=== PATIENT | female | born 1975 | race Caucasian/White ===

== ENCOUNTER 2016-10-05 02:27 | Inpatient (IN) | payer OTHER ==
[~2016-10-05] VITALS: Ht 162.6 cm; Wt 91.2 kg
[~2016-10-05 02:27] MED LIST: ATORVASTATIN CA10 M1 PO; CHANTIX0.5 M1 PO; EPIPEN 2-PAK1 MG/ML IM; GEMFIBROZIL600 M1 PO; LISINOPRIL20 M1 PO; METFORMIN HCL1000 M1 PO; PREDNISONE20 MG PO
--- NOTE | 2016-10-05 11:35 | Operative Report ---
Operative/Inv Procedure Report Surgery Date: 10/05/16 Name of Procedure: L4 5 transforaminal lumbar interbody fusion, L4 5 posterior lateral nonsegmental instrumentation using Medtronics Solera pedicle screws, bone marrow aspirate from right iliac crest, autograft, allograft, Stealth navigation, placement of fuse intervertebral biomechanical device, a right-side trandfacet transforaminal decompression, L4 laminectomy Pre-Operative Diagnosis: L4 5 spondylolisthesis Post-Operative Diagnosis: Same Estimated Blood Loss: 250 Surgeon/Gyroscopic Engineering Technician: christal swann MD,JUAN Reyes Anesthesia: general endotracheal tube Operative/Procedure Note Note: After the successful administration of general endotracheal anesthesia all lines tubes and monitors were placed by anesthesia team the patient was positioned prone on the Gabriel table with all pressure points padded. Under sterile technique a spinal needle was placed in the spinous process of L5 to confirm level. We then marked the patient was prepped and draped in usual standard fashion, a #10 blade was used to incise the skin of 10 mL of lidocaine with epinephrine was infiltrated in subcutaneous tissues. Dissection was taken down with Bovie cautery to thoracolumbar fascia and a subperiosteal dissection was carried out exposing spinous process and lamina of L4 and L5, after levels confirmed we denuded denuded L4 5 joint, the L3 4 joint was preserved. We identified the transverse processes bilaterally and decorticated them with a high-speed drill. We then used the bone scalpel to make a cut in the pars intra -articularis of L4 and the lamina of L4 removing the descending facet of L4. The central spinous process and lamina of L4 was resected with a Leksell and the bone scalpel, exposing the thecal sac. We identified the exiting L4 nerve root and traversing L5 nerve root generous foraminotomy was performed using Kerrison punch skeletonizing the L5 pedicle. We used the bone scalpel to make a cut in the superior facet of L5, providing wide axis the disc space. Retracted the neural elements medially with a Jose Angel nerve retractor into the disc space and with a comminution of kwadwo joshua rasps curettes perform a total discectomy at L4 5. We then trialed a 12 mm spacer, the space was prepacked with morselized autograft soaked in bone marrow aspirate taken from the right iliac crest. A 12 x 24 x 4 lordotic views cage was placed and the 4/5 disc space. We then placed the spinous process clamp on the spinous process of L5 and brought the O arm in for a spin. On the [employer] workstation we planned our screw entry points and trajectories. We used the navigated mitis to drill co pilot holes at the junction of pars reticularis transverse process facet complex at L4 and L5. We then used a similar ATS screw a 6 5 x 40 on the left at L4 and 5-6 5 x 45 at L4 to 6 5 x 40 at L5 on the right. All screws stimulated above threshold. We brought the O arm in for confirmatory spin all hardware in excellent position the L5 screws were backed out 1 full turn bilaterally. We then placed precontoured 35mm rods secured in place with a torque limiting wheat combine driver and provide gentle compression across the disc space. The lateral gutters were packed with morselized autograft and Maginafuse sponges. We then copiously irrigated the wound with bacitracin irrigation obtained meticulous hemostasis and bleeding bone edges are muscle we then closed wound over a BRANNON drain . We used 0 Vicryls for the fascia 2-0 Vicryl for the deep dermis and skin was closed with jean. A dry sterile dressing was applied, at end the case all needle counts sponges and instrument correct the patient was taken to recovery room in stable condition.
--- NOTE | 2016-10-05 11:45 | Operative Report ---
Operative/Inv Procedure Report Surgery Date: 10/05/16 Name of Procedure: 1. Right L4 pars osteotomy 2. Right L4 5 total facetectomy 3. Right L4 5 far lateral discectomy 4. L4 5 transforaminal lumbar interbody fusion with Medtronic fuse titanium interbody cage, autograft, iliac crest bone marrow aspirate 5. L4 5 posterior lateral arthrodesis with Medtronic Solera pedicle screws and rods, autograft, magna fuse, iliac crest bone marrow aspirate 6. O arm neuro navigation 7. Right iliac crest bone marrow aspirate Pre-Operative Diagnosis: L4 5 spondylolisthesis, high-grade right L4 5 foraminal stenosis, intractable right L4 radiculopathy Post-Operative Diagnosis: Same Estimated Blood Loss: 250cc Surgeon/Sign Letterer: ASHLEY BYRD,Darren Gonzalez M.D. Anesthesia: general endotracheal tube Monitors: Neurophysiologic monitoring IV Fluids: 1.6 L crystalloid Implants: Medtronic infused interbody cage, Solera ATS pedicle screws and rods Urine Output: 525 mL via Browning Drains: Medium BRANNON Specimens: L4 5 disc material Complications: None Condition: Stable Operative Indication: Patient is a 41-year-old woman with intractable right L4 lumbar radiculopathy. Symptoms are ongoing despite comprehensive conservative treatment. CT and MRI imaging identifies a grade 1 L4 5 degenerative spondylolisthesis with right lateral and foraminal disc herniation. This in conjunction with significant facet hypertrophy results in a high-grade right foraminal stenosis and impingement of the right L4 root. She now presents for operative decompression and instrument stabilization. Operative/Procedure Note Note: Patient was taken the operating room. After appropriate patient identification, neurophysiologic monitoring leads were placed and baseline recordings were obtained. The patient then underwent the smooth induction of general endotracheal anesthesia without incident. Following intubation monitoring was stable. A Browning catheter was sterilely inserted. DVT prophylaxis was utilized throughout the case. Patient was given 1 g IV vancomycin in Preoperative Prophylaxis. With all tubes and lines secured, the patient was then carefully turned to the prone position on the Gabriel frame taking care to ensure that all pressure points were well-padded. The lumbar region was widely prepped and draped usual sterile fashion using Hibiclens solution. A midline skin incision was marked and infiltrated with local anesthetic. A small gauge spinal needle was placed superficially and a localizing x-ray obtained and confirmed this to be the level of L5. Skin incision was made with a 10 blade knife. Dissection was carried down through subcutaneous tissue with the Bovie to the lumbodorsal fascia. The fascia was incised in midline and a subperiosteal dissection of the lumbar paraspinal muscles was performed bilaterally exposing underlying lamina and facet joints of L4 and L5. The facets of L4 5 were noted to be markedly hypertrophic. A Perry elevator was placed at the right L4 pars interarticularis and intraoperative lateral lumbar x-rays obtained and confirmed this to be the correct level of L4 5. With the correct level verified, we then proceeded to expose the transverse processes of L4 and L5 bilaterally in the were decorticated with a high-speed drill. We first focused our attention to the decompression. A complete facetectomy and L4 pars osteotomy was performed using the Aesculap bone scalpel and completed with Kerrison rongeurs on the symptomatic right side. Ligamentum flavum was gently elevated off the dura with angled curettes and removed piecemeal with Kerrison rongeurs exposing the exiting L4 and traversing L5 roots. Working from the patient's more symptomatically right side, the dural sac was gently mobilized to the midline and the underlying disc annulus identified. A cuff of overlying venous epidural tissue was coagulated and divided. The annulus itself was incised with a 11 blade knife and a rectangular fashion and discectomy was performed performed with the straight and angled curettes disc space kwadwo and rasps. The discectomy was completed until all cartilaginous endplate was removed. The disc space was irrigated. Stab incision was made overlying the posterior right iliac crest and 10 mL of right posterior iliac crest bone marrow aspirate was then obtained using a [employer] marrow aspirate kit. After apropriate trials, a 12 x 24 x 4 lordotic titanium Medtronic cage was selected. This was filled with morcellated autograft from the decompression. Morcellated autograft with iliac crest bone marrow aspirate was packed into the anterior L4 5 disc space. The cage was then gently tamped into the L4 5 interspace under direct visualization and countersunk by several millimeters with the trajectory of the cage towards the midline. Once the cage was in position, The O arm reference arc was then fixed to the residual L5 spinous process. AP and lateral senior etl developer films followed by a spin of the O arm were obtained. We verified the reconstructions and then proceeded with the posterior lateral arthrodesis. The remaining morcellated autograft was packed of the transverse processes bilaterally and covered with diffuse bilaterally. Using the O arm navigated Solera ATS system, we planned entry points for pedicle screws at L4 and L5 bilaterally at the junction of the pars interarticularis transverse process and inferomedial aspect of the rostral facet. Entry points were marked with the drill. Navigated Solera ATS screws were then placed bilaterally at L4 and L5 and stimulated with thresholds greater than 40 mA at all 4 locations. 6.5 x 45 mm placed at right L4, 6.5 x 40 mm at left L4, 6.5 x 40 mm screws placed bilaterally at L5. The O arm was then brought back into play and a second spin obtained and confirmed position of all of the instrumentation. 35 mm rods were then top loaded into the screws and locking caps placed. Gentle compression was placed across the interspace and the Screws were finally tightened with an antitorque device. The was copiously irrigated. A medium BRANNON drain was placed into the wound and secured to the skin with a 2-0 nylon suture. 1 g of IV vancomycin powder was used to coat the cut muscle and soft tissue surfaces and we then began wound closure. 10 mL of long-acting Marcaine was infiltrated into the paravertebral muscle bilaterally. Deep muscle was reapproximated interrupted 0 Vicryl suture. The lumbodorsal fascia was reapproximated interrupted 0 Vicryl suture. Subcutaneous tissue is closed in layers with interrupted 2-0 Vicryl suture and the skin was closed with jean. The stab incision at the right hip was closed with a single staple. Wounds were cleaned and dried. Bacitracin and a sterile occlusive dressings were placed. Patient was then returned to the supine position awakened X pain taken to PACU in stable condition. She was noted to be moving all 4 extremities at the completion the case. All sponge nail edge encounter correct the completion of the procedure 3. Neurophysiologic monitoring was stable throughout the case. Discharge Disposition: PACU
--- NOTE | 2016-10-05 13:00 | RADIOLOGY REPORT ---
EXAMINATION: XR LUMBAR SPINE CLINICAL INFORMATION: L4-L5 stabilization in OR. COMPARISON: X-rays obtained earlier 10/05/2016, intraoperative. TECHNIQUE: A single lateral view of the lumbar spine was obtained. Intraoperative CT scans were also obtained intraoperatively. FINDINGS: The lateral view demonstrates bilateral pedicular screws in L4 and L5 and the intervertebral disc device at L4-L5. There is a metallic plan around the spinous process of L5. There has been a posterior decompression at L4-L5. There is bone graft material bilaterally at L4-L5 around the facets. IMPRESSION: The study demonstrates placement of bilateral pedicular screws in L4 and L5, and there is an intervertebral disc device at L4-L5.
--- NOTE | 2016-10-05 13:01 | RADIOLOGY REPORT ---
EXAMINATION: XR LUMBAR SPINE CLINICAL INFORMATION: L4-L5 localization, pre stabilization. Image 2. COMPARISON: Intraoperative image obtained earlier 10/05/2016. TECHNIQUE: A single lateral view of the lumbar spine was obtained intraoperatively. FINDINGS: The lateral view demonstrates narrowing of intervertebral disc height at L4-L5 and L5-S1. There are facet arthropathic changes at these levels. There is a linear metallic instrument with the tip over the region of the posterior pedicle of L4. Material from swabs is noted, and there is a retractor posterior to the spinal column. IMPRESSION: 1. The single image demonstrates degenerative changes in the lower lumbar spine. 2. There are instruments at the level of L4.
--- NOTE | 2016-10-05 13:01 | RADIOLOGY REPORT ---
EXAMINATION: XR LUMBAR SPINE CLINICAL INFORMATION: L4-L5 localization. Increased embolization. Image 1. COMPARISON: CT lumbar spine 09/16/2016. TECHNIQUE: A single lateral view of the lumbar spine was obtained. There are degenerative changes at L4-L5 and L5-S1 with facet arthropathy narrowing of intervertebral disc height. FINDINGS: There are degenerative changes at L4-L5 and L5-S1. There is a needle tip posterior to the L5 spinous process. IMPRESSION: 1. The single image demonstrates degenerative changes in the lower lumbar spine. 2. There is a needle, with tip posterior to the spinous process of L5.
[2016-10-05 13:55] VITALS: BP 140/72
--- NOTE | 2016-10-05 14:00 | NUR ---
ADMISSION NOTE: PT ARRIVED TO ROOM IN STRETCHER WITH DISTRIBUTION A/OX3, ROOM AIR, 2 IVSIN TACT, IVF RUNNING, DSG TO LUMBAR BACK SHADOWING AND SPOTTING BLOOD, SCANT AMOUNT, BRANNON DRAIN TO BACK DRAINING BLOOD, ÁLVAREZ IN PLACE, REPORTING PAIN OF 5/10, REPORTS SENSATION TO LEGS AND ABSENCE OF PAIN TO LEGS, +PP, +CMS, VSS, RESTING COMFORTABLY IN BED, ORIENTED TO ROOM, WILL CONTINUE TO MONITOR.
--- NOTE | 2016-10-05 14:46 | PN- Neurosurgical ---
Subjective Subjective: POST-OP NOTE: Her pre-operative right leg pain and paresthesias are completely unappreciable now. She reports expected incisional discomfort. Tolerating clears so far. No nausea. Not yet out of bed. No dizziness. No shortness of breath. No chest pains. She is happy to no longer feel leg pain. Objective Vital Signs and I&Os Vital Signs Date Time Temp Pulse Resp B/P B/P Pulse O2 O2 Flow FiO2 Mean Ox Delivery Rate 10/05 1355 97.7 99 18 140/72 96 Room Air Physical Exam: General - alert & oriented x 3. comfortable. no acute distress. Lungs - clear bilaterally. no w/r/r. Cardiac - s1s2. reg. Abdomen - soft. nontender. Lumbar - dressing stained but intact. BRANNON drain with scant bloody drainage. - baron draining clear, yellow urine. Extremities - warm bilaterally. no c/c/e. calves soft and nontender b/l. DF/PF/ EHL 5/5 b/l. sensation grossly intact and equal. athrombic pumps active b/l. Current Medications: Current Medications Sig/Brynn Start time Last Medication Dose Route Stop Time Status Admin Acetaminophen 650 MG Q4P PRN 10/05 1245 AC PO Bisacodyl 10 MG DAILY NEEDED PRN 10/[address] Diazepam 5 MG Q8P PRN 10/05 1245 AC PO Docusate Sodium 100 MG TID 10/05 1600 AC PO Famotidine 20 MG BID 10/05 2200 AC PO Heparin Sodium 5,000 UNIT Q8 10/06 0600 AC (Porcine) SC Hydromorphone HCl 50 MG Q24H PRN 10/05 1215 AC Sodium Chloride 45 ML IV Ondansetron HCl 4 MG Q6P PRN 10/05 1245 AC IV Oxycodone/ 2 TAB Q4P PRN 10/05 1245 AC Acetaminophen PO Senna 374 MG QPM PRN 10/05 1245 AC PO Sodium Chloride 1,000 ML Q12H 10/05 1245 AC 10/05 IV 10/06 1244 1429 Trimethobenzamide HCl 200 MG Q6P PRN 10/05 1245 AC IM Vancomycin HCl 1,000 MG Q12 10/05 2200 AC Sodium Chloride 250 ML IV 10/08 1059 Vancomycin HCl 1,000 MG ONCE 10/05 0000 NR Sodium Chloride 250 ML IV 10/05 2359 Zolpidem Tartrate 2.5 MG AT BEDTIME PRN 10/05 2200 AC PO Results Last 48 Hours of Labs: Laboratory Tests 10/05 0628 Urines Urine Test NEGATIVE Assessment/Plan Assessment/Plan This 41 year old female is POD#0 s/p TLIF L4-5 for L4-5 spondylolisthesis, high -grade right L4-5 foraminal stenosis, intractable right L4 radiculopathy tolerating diet pain controlled with ekg monitor - dilaudid hep sc - dvt ppx vanco until drain removed monitor BRANNON drain overnight baron overnight, to be removed in the morning out of bed with brace d/c planning in 1-2 days, once drain removed will d/w Core Measures/Miscellaneous Venous Thromboembolism VTE Risk Factors: Age > 40, Surgery VTE Contraindications: No Contraindications VTE Diagnosis: No Beta Dorothea Is Beta Dorothea a Home Med? No Antibiotics Is Patient on Antibiotics? Yes If Yes: prophylaxis
[2016-10-05 15:58] VITALS: BP 100/62
--- NOTE | 2016-10-05 16:01 | Surg Short-stay <48hrs Dis Sum ---
Visit Information Visit Dates Admission Date: 10/05/16 Discharge Date: 10/07/16 Surgical Short Stay DC Summary Admission Diagnosis: L4-5 spondylolisthesis, high-grade right L4 5 foraminal stenosis, intractable right L4 radiculopathy Final Diagnosis: SAME ABOVE S/P Surgery Date: 10/05/16 Name of Procedure: 1. Right L4 pars osteotomy 2. Right L4 5 total facetectomy 3. Right L4 5 far lateral discectomy 4. L4 5 transforaminal lumbar interbody fusion with Medtronic fuse titanium interbody cage, autograft, iliac crest bone marrow aspirate 5. L4 5 posterior lateral arthrodesis with Medtronic Solera pedicle screws and rods, autograft, magna fuse, iliac crest bone marrow aspirate 6. O arm neuro navigation 7. Right iliac crest bone marrow aspirate Procedure(s): Surgery Date: 10/05/16 Name of Procedure: 1. Right L4 pars osteotomy 2. Right L4 5 total facetectomy 3. Right L4 5 far lateral discectomy 4. L4 5 transforaminal lumbar interbody fusion with Medtronic fuse titanium interbody cage, autograft, iliac crest bone marrow aspirate 5. L4 5 posterior lateral arthrodesis with Medtronic Solera pedicle screws and rods, autograft, magna fuse, iliac crest bone marrow aspirate 6. O arm neuro navigation 7. Right iliac crest bone marrow aspirate Summary/Significant Findings: Patient is a 41-year-old woman with intractable right L4 lumbar radiculopathy. Symptoms are ongoing despite comprehensive conservative treatment. CT and MRI imaging identifies a grade 1 L4 5 degenerative spondylolisthesis with right lateral and foraminal disc herniation. This in conjunction with significant facet hypertrophy results in a high-grade right foraminal stenosis and impingement of the right L4 root. She now presents for operative decompression and instrument stabilization. She presented for this electively planned procedure by and , and had: L4-5 transforaminal lumbar interbody fusion, L4 5 posterior lateral nonsegmental instrumentation using Medtronics Solera pedicle screws, bone marrow aspirate from right iliac crest, autograft, allograft, Stealth navigation, placement of fuse intervertebral biomechanical device, a right-side trandfacet transforaminal decompression, L4 laminectomy Post-operatively her pain was transitioned from iv to oral pain medication. A BRANNON drain was placed in the OR, and removed prior to her discharge to home once the drainage output was acceptable. Vancomycin was continued until the drain was removed. She has been out of bed with a lumbar brace. Her pre-operative symptoms of right leg pain and paresthesias had essentially resolved immediately post- operatively. Condition at Discharge: stable Discharge Disposition: home or self care Discharge instructions provided to patient/family: Yes Post discharge follow-up plan: pre-printed instructions provided prescriptions provided for pain control follow up with as directed
--- NOTE | 2016-10-05 16:10 | Patient Discharge Instructions ---
Discharge Instructions General Discharge Information You were seen/treated for: L4-5 spondylolisthesis, high-grade right L4-5 foraminal stenosis, intractable right L4 radiculopathy You had these procedures: Surgery Date: 10/05/16 Name of Procedure: 1. Right L4 pars osteotomy 2. Right L4 5 total facetectomy 3. Right L4 5 far lateral discectomy 4. L4 5 transforaminal lumbar interbody fusion with Medtronic fuse titanium interbody cage, autograft, iliac crest bone marrow aspirate 5. L4 5 posterior lateral arthrodesis with Medtronic Solera pedicle screws and rods, autograft, magna fuse, iliac crest bone marrow aspirate 6. O arm neuro navigation 7. Right iliac crest bone marrow aspirate Watch for these problems: fever>101.3, increased pain, numbness/tingling/paresthesias Call Surgeon to remove: Xiomara Diet Continue normal diet: Yes Recommended Diet: Regular Activity Full Activity/No Limits: No Activity Self Limited: Yes Pounds, do NOT lift more than: 5 Activity Limited to: Weight bear as tolerated Other activity limits: out of bed with lumbar brace Acute Coronary Syndrome Inclusion Criteria At DC or during hospital stay patient has or had the following: ACS DIAGNOSIS No Discharge Core Measures Meds if any: Prescribed or Continued at Discharge Meds if any: NOT Prescribed or Continued at Discharge Congestive Heart Failure Inclusion Criteria At DC or during hospital stay patient has or had the following: CHF DIAGNOSIS No Discharge Core Measures Meds if any: Prescribed or Continued at Discharge Meds if any: NOT Prescribed or Continued at Discharge Cerebrovascular accident Inclusion Criteria At DC or during hospital stay patient has or had the following: CVA/TIA Diagnosis No Discharge Core Measures Meds if any: Prescribed or Continued at Discharge Meds if any: NOT Prescribed or Continued at Discharge Venous thromboembolism Inclusion Criteria VTE Diagnosis No VTE Type NONE VTE Confirmed by (Test) NONE Discharge Core Measures - Per Current guidelines, there needs to be overlap - treatment for the first 5 days of Warfarin therapy. - If discharged on Warfarin prior to 5 days of - overlap therapy, the patient will need to be - assessed for post discharge needs including - *Post discharge parental anticoagulation - *Warfarin and/or parental anticoagulation education - *Follow up date to check INR post discharge At least 5 days overlap therapy as Inpatient No Meds if any: Prescribed or Continued at Discharge Note: Overlap Therapy is Warfarin and Anticoagulant Meds if any: NOT Prescribed or Continued at Discharge
[2016-10-05 19:48] VITALS: BP 122/68
[2016-10-05 20:00] VITALS: BP 122/68
[2016-10-05 22:00] VITALS: BP 108/60
[2016-10-05 22:30] VITALS: BP 108/60
[2016-10-06] VITALS (11 sets, daily range): BP systolic 106–142; BP diastolic 58–70
--- NOTE | 2016-10-06 07:41 | PN- Neurosurgical ---
Subjective Subjective: Pt doing well. Reports resolution of right LE preop pain, incisional LBP controlled with PLASTIC MACHINE OPERATOR. Objective Vital Signs and I&Os Vital Signs Date Time Temp Pulse Resp B/P B/P Pulse O2 O2 Flow FiO2 Mean Ox Delivery Rate 10/06 0718 98.6 85 18 110/64 97 Room Air 10/06 0507 98.7 98 18 110/60 98 Room Air 10/06 0400 98.7 98 18 110/60 / 0316 98.8 87 18 106/62 96 Room Air 10/06 0200 98.8 87 18 106/62 / 0107 98.0 92 20 116/62 96 Room Air 10/06 0000 97.7 76 22 142/60 10/05 2230 98.0 88 18 108/60 97 Room Air 10/05 2200 98.0 88 18 108/60 10/05 2144 Room Air 10/05 2000 98.5 99 20 122/68 10/05 1948 98.5 99 20 122/68 95 Room Air 10/05 1558 98.5 96 20 100/62 96 Room Air 10/05 1355 97.7 99 18 140/72 96 Room Air Intake & Output 10/06 0800 10/06 0000 10/05 1600 10/05 0800 10/05 0000 10/04 1600 Intake Total 880 580 Output Total 1305 375 Balance -425 205 Intake, IV 640 240 Intake, Oral 240 340 Output, 5 75 Drainage Output, Urine 1300 300 Patient 91.172 kg Weight Weight Reported by Patient Measurement Method Physical Exam: AF, VSS Incision is c,d,i neurologically intact bilat LE BRANNON in place, 5cc out last shift gilbert po, baron out this am using IS regularly Current Medications: Current Medications Sig/Brynn Start time Last Medication Dose Route Stop Time Status Admin Acetaminophen 650 MG Q4P PRN 10/05 1245 AC PO Atorvastatin Calcium 10 MG 1700 10/06 1700 AC PO Bisacodyl 10 MG DAILY NEEDED PRN 10/05 1245 AC NY Diazepam 5 MG Q8P PRN 10/05 1245 AC PO Docusate Sodium 100 MG TID 10/05 1600 AC 10/05 PO 1914 Famotidine 20 MG BID 10/05 2200 AC 10/05 PO 2224 Gemfibrozil 600 MG BID 10/05 2200 AC 10/05 PO 2224 Heparin Sodium 5,000 UNIT Q8 10/06 0600 AC 10/06 (Porcine) SC 0502 Hydromorphone HCl 50 MG Q24H PRN 10/05 1215 AC Sodium Chloride 45 ML IV Hydromorphone HCl 2 MG .STK-MED ONE 10/05 1157 DC IM 10/05 1158 Lisinopril 20 MG DAILY 10/06 1000 AC PO Metformin HCl 1,000 MG 0800,1700 10/06 0800 DC PO Metformin HCl 1,000 MG 0800,1700 10/05 1800 AC 10/05 PO 2224 Ondansetron HCl 4 MG Q6P PRN 10/05 1245 AC IV Oxycodone/ 2 TAB Q4P PRN 10/05 1245 AC Acetaminophen PO Senna 374 MG QPM PRN 10/05 1245 AC PO Sodium Chloride 1,000 ML Q12H 10/05 1245 AC 10/05 IV 10/06 1244 2226 Trimethobenzamide HCl 200 MG Q6P PRN 10/05 1245 AC IM Vancomycin HCl 1,000 MG Q12 10/05 2200 AC 10/05 Sodium Chloride 250 ML IV 10/08 1059 2226 Vancomycin HCl 1,000 MG ONCE 10/05 0000 DC Sodium Chloride 250 ML IV 10/05 2359 Varenicline 1 MG BID 10/05 2200 AC 10/05 PO 2224 Zolpidem Tartrate 2.5 MG AT BEDTIME PRN 10/05 2200 AC PO Results Last 48 Hours of Labs: Laboratory Tests 10/05 0628 Urines Urine Test NEGATIVE Assessment/Plan Assessment/Plan Pt POD1 s/p L4/5 TLIF and doing well with resolved right leg pain. Plan: -OOB with brace -dc PLASTIC MACHINE OPERATOR, use percocet q4hr prn and iv dilaudid 1-2mg for breakthrough -IS use 10x per hr -cont BRANNON this am, dc if less than 50cc next shift -cont vanco until drain out -toradol atc -home probably tomorrow Core Measures/Miscellaneous Venous Thromboembolism VTE Risk Factors: Age > 40, Surgery VTE Contraindications: No Contraindications VTE Diagnosis: No Beta Dorothea Is Beta Dorothea a Home Med? No Antibiotics Is Patient on Antibiotics? Yes If Yes: prophylaxis Attending MD Review Statement Attending Statement Attending MD Statement: examined this patient, discuss w/resident/PA/EXECUTIVE ASSISTANT TO PRESIDENT
[2016-10-06] MEDS ORDERED: EPIPEN 2-P0.3 MG/0.3 IM (07:46)
[2016-10-07 07:11] VITALS: BP 102/68
--- NOTE | 2016-10-07 07:49 | PN- Neurosurgical ---
Subjective Subjective: Pt doing well. Had gas with bloating last night, better this am. Pain well controlled with percocet and toradol. Objective Vital Signs and I&Os Vital Signs Date Time Temp Pulse Resp B/P B/P Pulse O2 O2 Flow FiO2 Mean Ox Delivery Rate 10/07 0711 97.7 85 18 102/68 96 Room Air 10/06 2246 98.4 94 20 116/70 97 Room Air 10/06 2212 92 118/58 06/ 1357 98.8 92 18 118/58 96 Room Air 10/06 0930 98.0 84 18 128/70 98 Room Air Intake & Output 10/07 0810/07 0000 10/06 1600 10/06 0800 10/06 0000 10/05 1600 Intake Total 300 1320 880 580 Output Total 479 324 5112 375 Balance -140 1070 -425 205 Intake, IV 480 640 240 Intake, Oral 300 840 240 340 Output, 40 5 75 Drainage Output, Urine 304 978 7023 300 Patient 91.172 kg Weight Weight Reported by Patient Measurement Method Physical Exam: AF, VSS neuro intact bilat LE abd soft, NT, passing flatus BRANNON with 40/20cc last 2 shifts serosanguinous ambulating, gilbert po, voiding on own Current Medications: Current Medications Sig/Brynn Start time Last Medication Dose Route Stop Time Status Admin Acetaminophen 650 MG Q4P PRN 10/05 1245 AC PO Atorvastatin Calcium 10 MG 1700 10/06 1700 AC 10/06 PO 1755 Bisacodyl 10 MG DAILY NEEDED PRN 10/05 1245 AC MD Diazepam 5 MG Q8P PRN 10/05 1245 AC 10/06 PO 2210 Docusate Sodium 100 MG TID 10/05 1600 AC 10/06 PO 2211 Famotidine 20 MG BID 10/05 2200 AC 10/06 PO 2212 Gemfibrozil 600 MG BID 10/05 2200 AC 10/06 PO 2212 Heparin Sodium 5,000 UNIT Q8 10/06 06 AC 10/07 (Porcine) SC 0532 Hydromorphone HCl 0.4 MG Q4P PRN 10/06 0800 AC IV Ketorolac 15 MG Q8H 10/06 1830 AC 10/07 Tromethamine IV 0204 Ketorolac 30 MG .STK-MED ONE 10/07 1827 DC Tromethamine IM 10/06 1829 Ketorolac 30 MG .STK-MED ONE 10/06 0801 DC Tromethamine IM 10/06 0802 Ketorolac 15 MG Q8 10/06 0746 DC 10/06 Tromethamine IV 0803 Lisinopril 20 MG 2200 10/06 2200 AC 10/06 PO 2212 Lisinopril 20 MG DAILY 10/06 1000 DC PO Metformin HCl 1,000 MG 0800,1700 10/05 1800 AC 10/06 PO 1755 Ondansetron HCl 4 MG Q6P PRN 10/05 1245 AC 10/07 IV 0224 Oxycodone/ 1 TAB Q4P PRN 10/06 0800 AC Acetaminophen PO Oxycodone/ 2 TAB Q4P PRN 10/06 0800 AC 10/07 Acetaminophen PO 0203 Oxycodone/ 2 TAB Q4P PRN 10/05 1245 DC Acetaminophen PO Patient Medication 1 ED .STK-MED ONE 10/06 1245 DC Teaching ED 10/06 1246 Senna 374 MG QPM PRN 10/05 1245 AC 10/07 PO 0212 Sodium Chloride 1,000 ML Q12H 10/05 1245 DC 10/05 IV 10/06 1244 2226 Trimethobenzamide HCl 200 MG Q6P PRN 10/05 1245 AC IM Vancomycin HCl 1,000 MG Q12 10/05 2200 AC 10/06 Sodium Chloride 250 ML IV 10/08 1059 2212 Varenicline 1 MG BID 10/05 2200 AC 10/06 PO 2211 Zolpidem Tartrate 2.5 MG AT BEDTIME PRN 10/05 2200 AC PO Assessment/Plan Assessment/Plan Pt stable POD2 s/p L4/5 TLIF -dc BRANNON, abx -dc to home later this am -dc instructions discussed - brace when OOB, no lift more than 5 lbs, no driving , submerging incision, cover for showers -fu with me 2 weeks -percocet, oral toradol prn for dc Core Measures/Miscellaneous Venous Thromboembolism VTE Risk Factors: Age > 40, Surgery VTE Contraindications: No Contraindications VTE Diagnosis: No Beta Dorothea Is Beta Dorothea a Home Med? No Antibiotics Is Patient on Antibiotics? Yes If Yes: prophylaxis Attending MD Review Statement Attending Statement Attending MD Statement: examined this patient, discuss w/resident/PA/AIR CONDITIONING INSTALLER SUPERVISOR, discussed w/nursing
[2016-10-07] MEDS ORDERED: KETOROLAC TROME10 M1 PO (08:07)
[2016-10-07] MEDS ORDERED: PERCOCET 5-3251 EACH PO (08:07)
[2016-10-07] MEDS ORDERED: DOCUSATE SODIU100 M3 PO (08:07)
[2016-10-07] MEDS ORDERED: VALIUM10 M1 PO (08:07)
--- NOTE | 2016-10-07 12:20 | NUR ---
1220 PATIENT'S DRESSING TO THE LOWER BACK WAS SATURATED WITH SEROSANGIONOUS DRAINAGE. THE POST OP DRESSING WAS CHANGED BY THE PA THIS AM AND THE BRANNON DRAIN HAD BEEN REMOVED. CELESTINE JULIO NOTIFIED OF THE SATURATED DRESSING, THE DRESSING WAS CHANGED PER CELESTINE JULIO, AND THE PA NOTIFIED THIS RN THAT SOMEONE WILL BE IN TO SEE THE PATIENT.
--- NOTE | 2016-10-07 13:27 | NUR ---
0285 CELESTINE JULIO IN THE ROOM TOO SEE THE PATIENT.
== END 2016-10-07 15:00 | DRG 460 ==
LOC: SDA 02:27 → 2NB 02:27 → ENRESERV 12:31 → 2NB 13:17 → ENPENDDIS 10-07 08:15 → 2NB 10-07 15:00
PROVIDERS: ADMIT Neurological Surgery
PROC: 0SG0071 Fusion of Lumbar Vertebral Joint with Autologous Tissue Substitute, Posterior Approach, Posterior Column, Open Approach (ICD-10-PCS; principal; 2016-10-05)
PROC: 0QB20ZZ Excision of Right Pelvic Bone, Open Approach (ICD-10-PCS; principal; 2016-10-05)
PROC: 0SG00AJ Fusion of Lumbar Vertebral Joint with Interbody Fusion Device, Posterior Approach, Anterior Column, Open Approach (ICD-10-PCS; principal; 2016-10-05)
PROC: 4A11X4G Monitoring of Peripheral Nervous Electrical Activity, Intraoperative, External Approach (ICD-10-PCS; 2016-10-05)
PROC: 0ST20ZZ Resection of Lumbar Vertebral Disc, Open Approach (ICD-10-PCS; 2016-10-05)
DX: M43.16 Spondylolisthesis, lumbar region (principal); I10 Essential (primary) hypertension; M48.06 Spinal stenosis, lumbar region; M51.16 Intervertebral disc disorders with radiculopathy, lumbar region; E11.9 Type 2 diabetes mellitus without complications; E78.5 Hyperlipidemia, unspecified; F17.210 Nicotine dependence, cigarettes, uncomplicated; Z79.84 Long term (current) use of oral hypoglycemic drugs
CPT/HCPCS: 2NBP; 72020; 81025; 87086; 88304; C1713; J0131; J1170; J1644; J1885; J2405; J3250; J3370; J7040

== ENCOUNTER 2016-10-13 19:07 | Emergency (ER) | payer OTHER ==
[~2016-10-13] VITALS: Ht 162.6 cm; Wt 93.0 kg
[~2016-10-13 19:07] MED LIST changes: +DOCUSATE SODIU100 M3 PO; +EPIPEN 2-P0.3 MG/0.3 IM; +KETOROLAC TROME10 M1 PO; +PERCOCET 5-3251 EACH PO; +VALIUM10 M1 PO
[2016-10-13 19:58] VITALS: BP 125/84
[2016-10-13] MEDS ORDERED: CHANTIX1 MG PO (20:45)
[2016-10-13 21:04] LABS: ABSOLUTE BASOPHIL COUNT 0.1 /CUMM (0.0-0.2); ABSOLUTE EOSINOPHIL COUNT 0.3 /CUMM (0.0-0.7); ABSOLUTE GRANULOCYTE CT 11.4 /CUMM (1.4-6.5); ABSOLUTE LYMPH COUNT 2.6 /CUMM (1.2-3.4); ABSOLUTE MONOCYTE COUNT 0.7 /CUMM (0.10-0.60); BASOPHIL % 0.5 % (0.0-2.0); GRANULOCYTE % 75.6 % (42.2-75.2); HEMATOCRIT 37.8 % (37-47); MEAN CORPUSCULAR HGB 30.2 PG (27.0-31.0); MEAN CORPUSCULAR HGB CONC 33.5 G/DL (33.0-37.0); MEAN CORPUSCULAR VOLUME 89.9 FL (81.0-99.0); MEAN PLATELET VOLUME 7.5 FL (7.4-10.4); PLATELET COUNT 339 /CUMM (130-400); RBC DISTRIBUTION WIDTH 13.2 % (11.5-14.5); RED BLOOD CELL CT 4.21 /CUMM (4.20-5.40); WHITE BLOOD CELL COUNT 15.1 /CUMM (4.8-10.8)
--- NOTE | 2016-10-13 21:31 | ED GI/GU/ABDOMINAL COMPLAINT ---
History of Present Illness General Chief Complaint: General Adult Stated Complaint: PT HASN'T USE THE BATHROOM IN 8DAYS AND LOTS OF PA Source: patient Exam Limitations: no limitations Vital Signs & Intake/Output Vital Signs & Intake/Output Vital Signs Date Time Temp Pulse Resp B/P B/P Pulse O2 O2 Flow FiO2 Mean Ox Delivery Rate 10/13 1957 97.3 118 22 125/84 99 Room Air Allergies Coded Allergies: Penicillins (Intermediate, HIVES 10/13/16) Sulfa (Sulfonamide Antibiotics) (Intermediate, GI UPSET 10/13/16) naproxen (From NAPROSYN) (Intermediate, HIVES 10/13/16) Uncoded Allergies: FRAGRANCES AND COLOR DYES (Intermediate, HIVES 05/05/14) Reconcile Medications Atorvastatin Calcium 10 MG TABLET 1 TAB PO DAILY CHOLESTEROL (Reported) Diazepam (Valium) 10 MG TABLET 5 MG PO Q8P PRN FOR SPASM TAKE DIRECTED FOR MUSCLE SPASM. STAGGER WITH PERCOCET. Docusate Sodium 100 MG CAPSULE 100 MG PO TID PRN CONSTIPATION STOOL SOFTENER AVAILABLE OVER THE COUNTER Epinephrine (Epipen 2-Logan) 0.3 MG/0.3 ML AUTO.INJCT 0.3 MG IM AD PRN ALLERGIC REACTION (Reported) Gemfibrozil 600 MG TABLET 1 TAB PO BID TRIGLYCERIDES (Reported) Ketorolac Tromethamine 10 MG TABLET 1 TAB PO Q6P PRN PAIN CONTROL TAKE WITH FOOD Lisinopril 20 MG TABLET 1 TAB PO DAILY HTN (Reported) Metformin HCl 1,000 MG TABLET 1 TAB PO BID DM II (Reported) Oxycodone HCl/Acetaminophen (Percocet 5-325 MG Tablet) 5 MG-325 MG TABLET 1-2 TAB PO Q4-6 PRN PRN PAIN CONTROL TAKE DIRECTED FOR PAIN CONTROL. STAGGER WITH VALIUM NEEDED. Varenicline Tartrate (Chantix) 1 MG TABLET 1 TAB PO BID SMOKING CESSATION ( Reported) Triage Note: TRIAGE: PT TO ER C/C CONSTIPATION X 8 DAYS. DISLODGED "A FEW PIECES TODAY" BUT LBBM 9 DAYS AGO. S/P BACK FUSION 10/05. HAS BEEN TAKING NARCOTIC PAIN MEDICATIONS. HAS TRIED MAG CITRATE, STOOL SOFTENER WITH NO REAL RELIEF. DRANK THE MAG CITRATE 7 HOURS AGO. FEELS URGE TO MOVE BOWELS "BUT ITS THE SIZE OF A SOFT BALL AND THERE'S ABSOLUTELY NO WAY FOR IT TO COME OUT". Triage Nurses Notes Reviewed? yes ? n Is pt currently ? No Onset: Abrupt Duration: day(s): (8), constant, continues in ED Timing: recent history Quality/Severity: moderate, sharpness Location: generalized abdomen, rectal Radiation: no radiation No Modifying Factors: none HPI: 41-year-old female comes into emergency room with complaints of constipation for the past 8 days. Patient reports that she had a lumbar fusion performed by Dr. Rawls 8 days ago. She reports that she has not had a bowel movement since then. She has been on stool softeners. She took magnesium citrate. She reports that she feels a large piece of stool right at her rectal area that she cannot past. Denies any vomiting. Patient reports that her back feels significantly better. Denies any other associated symptoms. (CHIKI GONZALEZ) Past History Travel History Traveled to [place] past 21 day No Medical History Any Pertinent Medical History? see below for history Neurological: migraine EENT: allergies, SEASONAL Cardiovascular: hypertension, hyperlipidemia Respiratory: NONE Gastrointestinal: NONE Hepatic: NONE Renal: NONE Musculoskeletal: LUMBAR PAIN SINCE 01/2016 Psychiatric: NONE Endocrine: diabetes Blood Disorders: anemia Cancer(s): NONE AUDIT SENIOR ASSOCIATE/Reproductive: NONE History of MRSA: No History of VRE: No History of CDIFF: No Surgical History Surgical History: , LEFT ARM PLATE TONSILECTOMY Psychosocial History Who do you live with Patient/Self What is your primary language Albanian Tobacco Use: Quit <30 days ago ETOH Use: denies use Illicit Drug Use: denies illicit drug use Family History Hx Contributory? No (CHIKI GONZALEZ) Review of Systems Review of Systems Constitutional: Reports: no symptoms. EENTM: Reports: no symptoms. Respiratory: Reports: no symptoms. Cardiovascular: Reports: no symptoms. GI: Reports: see HPI. Genitourinary: Reports: no symptoms. Musculoskeletal: Reports: no symptoms. Skin: Reports: no symptoms. Neurological/Psychological: Reports: no symptoms. Hematologic/Endocrine: Reports: no symptoms. Immunologic/Allergic: Reports: no symptoms. All Other Systems: Reviewed and Negative (CHIKI GONZALEZ) Physical Exam Physical Exam General Appearance: well developed/nourished, no apparent distress, alert Head: atraumatic Eyes: Bilateral: normal appearance. Ears, Nose, Throat, Mouth: hearing grossly normal, moist mucous membrane Neck: normal inspection Respiratory: no respiratory distress Gastrointestinal: soft, tenderness (MILD) Rectal: fecal impaction, PATIENT MANUALLY DISIMPACTED Back: normal range of motion, dressing in place, no erythema surrounding dressing, Extremities: normal range of motion Neurologic/Psych: awake, alert, oriented x 3, normal gait Skin: intact, normal color Core Measures ACS in differential dx? No Severe Sepsis Present: No Septic Shock Present: No (CHIKI GONZALEZ) Progress Differential Diagnosis: appendicitis, biliary colic, bowel obstruction, colon cancer, cholecystitis, diverticulitis, gastritis, hepatitis, hernia, ischemic bowel, inflamm bowel dis, kidney stone, ovarian cyst, ovarian torsion, pancreatitis, PID/cervicitis, peptic ulcer, PUD/GERD, SBO, threatened AB, UTI/ pyelo Plan of Care: Orders Procedure Date/time Status Enema 10/13 2141 Active URINE 10/13 2036 Active URINALYSIS 10/13 2036 Active COMPREHENSIVE METABOLIC PANEL 10/13 2036 Complete CBC WITHOUT DIFFERENTIAL 10/13 2036 Complete Laboratory Tests 10/13/162054: Anion Gap 8, Estimated GFR > 60, BUN/Creatinine Ratio 26.0 H, Glucose 145 H, Calcium 10.5 H, Total Bilirubin 0.5, AST 28, ALT 42, Alkaline Phosphatase 91, Total Protein 6.7, Albumin 4.0, Globulin 2.7, Albumin/Globulin Ratio 1.5, CBC w Diff NO MAN DIFF REQ, RBC 4.21, MCV 89.9, MCH 30.2, RDW 13.2, MPV 7.5, Gran % 75.6 H, Lymphocytes % 17.0 L, Monocytes % 4.9, Eosinophils % 2.0, Basophils % 0.5, Absolute Granulocytes 11.4 H, Absolute Lymphocytes 2.6, Absolute Monocytes 0.7 H, Absolute Eosinophils 0.3, Absolute Basophils 0.1, PUBS MCHC 33.5 Diagnostic Imaging: Viewed by Me: Radiology Read. Discussed w/RAD: Radiology Read. Radiology Impression: EXAM TYPE: RAD - [id number] VIEWS EXAMINATION: XR ABDOMEN MULTIPLE VIEWS CLINICAL INDICATION: Abdominal pain. Evaluate for constipation. COMPARISON: None. TECHNIQUE: Supine and erect views of the abdomen and pelvis. FINDINGS: There is a moderate amount of retained stool throughout the colon, indicative of constipation. The bowel gas pattern is otherwise nonspecific, without findings indicative of small bowel obstruction or ileus. A rounded calcification within the right upper quadrant of the abdomen may correspond to a gallstone or renal stone. Surgical skin jean are visualized along the midline. There are bilateral longitudinal rods and transpedicular screws related to posterior lumbar fixation from L4 to L5 with and intervertebral disc spacer identified. There is no visible acute osseous abnormality. The included lung bases are clear. No free air is identified beneath bilateral hemidiaphragms. IMPRESSION: A moderate amount of retained stool throughout the colon, indicative of constipation. Otherwise, nonspecific bowel gas pattern, without findings indicative of small bowel obstruction or ileus. DICTATED BY: WILLIAM MITCHELL MD DATE/TIME DICTATED:10/13/162127 GRILL CHEF:PATO DATE/TIME TRANSCRIBED:10/13/162127 Initial ED EKG: none Hand-Off Endorsed To: ASDE FISCHER MD Endorsed Time: 2255 Pending: labs (ua), other (bowel movement) (CHIKI GONZALEZ) Departure Departure Disposition: HOME OR SELF CARE Condition: Stable Clinical Impression Primary Impression: Fecal impaction Referrals: SAM CRAIG APRN (PCP/Family) Additional Instructions: Take MiraLAX [id number] as needed. Drink plenty of fluids. Continue using stool softeners. Return if any concerns worsening symptoms. Please go over all results of today's visit with your primary care doctor. Contact your primary care doctor to let them know you were here in the emergency room. There may be nonspecific findings which may not be related to your visit today here in the emergency room but may require further evaluation and chronic monitoring by your primary care doctor. If you had a laceration today the chance of foreign body always remains. You should follow-up with your primary care doctor for recheck in 3-5 days for a wound check. If you had an x-ray done there is a chance that a fracture could have been missed on initial read and you should follow-up with your primary care doctor for repeat x-rays if symptoms persist. If your blood pressure was elevated here in the emergency room please have rechecked by her primary care doctor within the next 48 hours by your primary care doctor. If you were prescribed a narcotic here in the emergency room or any type of controlled substances you're not allowed to drive while taking this medication or operate any type of heavy machinery. Narcotics can make you feel lightheaded dizziness nausea and can cause constipation. You may need to machine operator hop picker a stool softener. Thank you for choosing [facility] emergency room. Please return to the emergency room immediately if you have any other concerns worsening of symptoms. Departure Forms: Customer Survey General Discharge Information (CHIKI GONZALEZ) PA/TREASURY MANAGEMENT SALES CONSULTANT Co-Sign Statement Statement: ED Attending supervision documentation- I saw and evaluated the patient. I have also reviewed all the pertinent lab results and diagnostic results. I agree with the findings and the plan of care as documented in the PA's/TREASURY MANAGEMENT SALES CONSULTANT's documentation. x I have reviewed the ED Record and agree with the PA's/TREASURY MANAGEMENT SALES CONSULTANT's documentation. [] Additions or exceptions (if any) to the PAs/TREASURY MANAGEMENT SALES CONSULTANT's note and plan are summarized below: [] (AALIYAH BYRD,SADE)
== END 2016-10-13 23:42 ==
LOC: ERH 19:07
PROVIDERS: Physician Assistant Medical
DX: K56.41 Fecal impaction (principal)
CPT/HCPCS: 74020; 81025; 96372